=== PATIENT | female | born 2000 | race Caucasian/White ===

== ENCOUNTER 2025-02-11 15:17 | Outpatient (AMB) | payer MEDICAID, SELFPAY ==
[2025-02-11 15:38] VITALS: BP 99/60; PULSE 86; RESP 16; TEMP 35.9; O2SAT 95; BMI 29.9
--- NOTE | 2025-02-11 15:38 | OBCLNT_ITS ---
Vital Signs 02/11/25 15:38 Height 1.63 m Height Method Stated Weight 79.095 kg Weight Measurement Method Baby Scale BMI 29.9 BP 99/60 Blood Pressure Source Automatic Cuff Blood Pressure Location Left Upper Arm Position Sitting Respiration 16 Pulse 86 Pulse Source Monitor Temp 96.7 F L Temp Source Oral Pulse Oximetry (%) 95 Oxygen Delivery Method Room Air Allergies/Home Meds Allergies & Medications Allergies No Known Allergies Allergy (Verified 02/11/25 15:39) Medication Reconciliation No Known Home Medications 02/11/25 [History Confirmed 02/11/25] Intake Visit Data Collection New Patient or Established: New Patient (never been to [facility]) Reason for Visit:: INITIAL CARE Seen by Clinical Staff ONLY (RN/MA): No Record Librarian Required: No Do You Feel Safe at Home: Yes Authorities Contacted: N/A PCP or OBGYN visit in last 3 months: Yes Hx Now: Yes Are you currently on any form of Control: No Last menstrual period: 07/21/24 Pain Present Currently: No Pain Scale Used: Waterman-Lopez/Numerical Pain scale:: 0 Smoking Status Smoking Status: Former smoker Questionnaires Covid-19 Vaccine Questionnaire Has patient been vacinated for Covid-19 Have you been vacinated for Covid-19: No PHQ-9 PHQ-2 Over the last 2 weeks, how often have you been bothered by any of the following problems? 1. Little interest or pleasure in doing things: not at all 2. Feeling down, depressed, or hopeless: not at all Total score: 0 PHQ-9 3. Trouble falling or staying asleep, or sleeping too much: Not at all 4. Feeling tired or having little energy: Not at all 5. Poor appetite or overeating: Not at all 6. Feeling bad about yourself - or that you are a failure or have let yourself or your family down: Not at all 7. Trouble concentrating on things, such as reading the newspaper or watching television: Not at all 8. Moving or speaking so slowly that other people could have noticed? - Or the opposite - being so fidgety or restless that you have been moving around a lot more than usual: not at all 9. Thoughts that you would be better off or of hurting yourself in some way: Not at all Total score: 0 Source: Developed by Drs. Francisco Rivas, Gisselle Alegre, Bert Hancock and colleagues, with an educational jose from [employer]. Depression screen completed yes Social History Tobacco History Smoking Status: Former smoker Domestic Abuse History Do You Feel Safe at Home: Yes Past Medical History Past Medical History Have you ever been diagnosed with any of the following: History of Present Illness HPI Narrative 24-year-old 4 para 1 comes to [facility] for first visit. Patient has been [facility] here in [place] for care. Her last. July 21, 2024. This gives due date April 25, 2025. Patient was transferred for care from [facility] early on in the . Patient has a history of previous x 1. was for distress. Patient first C- section was at [facility]. Patient plans to deliver this baby at [facility] as well. Patient would like [place]. Patient understands the risks and benefits of trial of labor after previous . Reports activity. Denies any complaints of labor. Denies leaking or bleeding. Patient complains of sciatic pain down both hips. And she also complains of problems with her allergies and she has patient been taking Zyrtec for allergic symptoms and that helps. Previous history of marijuana use. Patient signed medical release of records and chart is pending. No labs available at this time OB Initial Visit OB Flowsheet OB Flowsheet Initial Weight: Not Recorded Date -?-?-?-?-?-?-?-?-?-?-?-?- EGA Weight Edema CTX Effacement BP Fundal ht Pres Dilation Effacement Station Visit Note Alb Glu FHR Mov 02/11/25 -?-?-?-?-?-?-?-?-?-?-?-?- 29w 2d 79.095 kg absent absent 29 24-year-old 2 para 1 at 29 weeks 6 days. Previous history of x 1 at [facility]. C- section was for decreased heart rate of the baby. Patient would like to have a . Patient understands that this currently at this time VBACs are not being done at [facility]. So patient plans to go to [facility] in labor. Patient lives in [place] as well. I discussed labor with the patient. Discussed comfort measures for both allergies and sciatica. And then I discussed with patient again the policy for having a at [facility]. I advised the patient to try and schedule an OB appointment at one of the [facility] clinics. And I did remind patient that I would schedule her with an OB here at this clinic so that she can discuss and be made more aware of options for . Declined T dap today. Discussed labor prevention and symptoms. Return in 2 weeks OB check 24-year-old 4 para 1 at 29 weeks 6 days. Previous history of x 1 at [facility]. was for decreased heart rate of the baby. Patient would like to have a . Patient understands that this currently at this time VBACs are not being done at [facility]. So patient plans to go to [facility] in labor. Patient lives in [place] as well. I discussed labor with the patient. Discussed comfort measures for both allergies and sciatica. And then I discussed with patient again the policy for having a at [facility]. I advised the patient to try and schedule an OB appointment at one of the [facility] clinics. And I did remind patient that I would schedule her with an OB here at this clinic so that she can discuss and be made more aware of options for . Declined T dap today. Discussed labor prevention and symptoms. Return in 2 weeks OB check 151 active Menstrual History Menstrual reliability: definite Flow: normal Menstrual regularity: regular Monthly: Yes Age at menarche: 12 On control pills at conception: No Date of positive home test: 08/04/24 Associated symptoms (LMP): Denies amenorrhea, nausea, vomiting, fatigue, breast tenderness, urinary frequency, irritability, bloating or other OB History : 4 Para: 1 Hx Total # of Abortions (Spontaneous & Elective): 2 # of Living Children: 1 Delivery History 1st : Child's name: INDRA sex: male Gestational age at delivery (weeks): 39 Delivery type: Delivery complications: BABY HEART RATE History of depression before or after : No Infection History & Risk Evaluation History of STDs: chlamydia (3 YEARS AGO. negative this ) Genetic Screening & History Genetic Screening/Teratology Counseling - Includes patient, baby's father, or anyone in either family with: 1. Patient's age 35 years or older as of estimated date of delivery: No 2. Thalassemia (Thai, Maltese, Mediterranean, or Background); MCV less than 80: No 3. Neural Tube Defect (Meningomyelocele, Spina Bifida, or Anencephaly): No 4. Congenital Heart Defect: No 5. Down Syndrome: No 6. Josesito-Sachs (Ashkenazi Mormonism, Cajun, Greek [place]): No 7. Nilton Disease (Ashkenazi Mormonism): No 8. Familial Dysautonomia (Ashkenazi Mormonism): No 9. Sickle Cell Disease or Trait (): No 10. Hemophilia or other blood disorders: No 11. Muscular Dystrophy: No 12. Cystic Fibrosis: No 13. Nathan's Chorea: No 14. Mental Retardation/Autism: No 15. Other inherited genetic or chromosomal disorder: No 16. Maternal Metabolic Disorder (EG,TYPE 1 Diabetes, PKU): No 17. Patient or baby's father had a child with defects not listed above: No 18. Recurrent loss or a stillbirth: No 19. Medications (including supplements, vitamins, herbs or otc drugs)/illicit/recreational drugs/alcohol since last menstrual period: No 20. Any other: No Infection History 1. Live with someone with TB or exposed to TB: No 2. Rash or viral illness since last menstrual period: No 3. Hepatitis B,C: No 4. History of STD: chlamydia (3 YEARS AGO) Other (see comments) Source: [employer] Review of Systems Review of Systems Systems Reviewed: All systems reviewed, normal except as documented Constitutional Constitutional: Denies fatigue Gastrointestinal Gastrointestinal: Denies bloating, Denies nausea and Denies vomiting Genitourinary Genitourinary: Denies amenorrhea and Denies urinary frequency Psychiatric Psychiatric: Denies irritability Endocrine Endocrine: Denies fatigue Exam General Limitations: no limitations General Appearance: alert, in no apparent distress, comfortable, cooperative, healthy appearing, well developed and well groomed Resp Respiratory exam: Present normal lung sounds bilaterally Card Cardiovascular exam: Present regular rate, normal rhythm and normal heart sounds Abdominal Abdominal exam: Present soft (fh: 29, fht: 151) and normal bowel sounds Psych Psychiatric exam: Present normal affect and normal mood Assessment & Plan Diagnosis / Problem List (1) Encounter for supervision of normal in multigravida in third trimester: Status: Acute (2) Encounter for maternal care for low transverse scar from previous delivery: Status: Acute Plan Medical release for chart and records. Continue vitamins and iron. Discussed dates with patient. I discussed with patient risks and benefits. Discussed policy with patient in regards to [facility]. I advised patient to try and schedule apportionment appointment at [facility]. [place] is closer to her house and also patient wants to deliver there [facility]. Patient declined Tdap today return in 2 weeks Additional Plan Follow Up: 2 Weeks (rtc 2 week obc) Office Procedures OB Clinic LOC & Office Proc's Nursing/Assessment Patient Status: Initial/New Patient OB Clinic Nursing Assessment: Medication Reconciliation, Update PMH in EMR and Vital Signs OB Clinic Coordination of Care: Complex Care and Chronic Disease 1-5, Consent,records obtained, informed consent, Education Simp Pt/Fam, Lab and Imaging orders and Staff clarify orders Special Needs: Heart tones New Patient Charge New Patient Point Assignment: [id number] New Patient Point Charge: COMMERCIAL ACCOUNT MANAGER Level 4 ([id number])
== END 2025-02-11 16:11 | disposition home or self-care (01) ==
LOC: HODSOBC 15:17
PROVIDERS: Supervising Provider Advanced Practice Midwife; Visit Provider Advanced Practice Midwife
DX: O09.893 Supervision of other high risk pregnancies, third trimester (principal); Z3A.29 29 weeks gestation of pregnancy; O34.211 Maternal care for low transverse scar from previous cesarean delivery; O99.891 Other specified diseases and conditions complicating pregnancy; M54.32 Sciatica, left side; M54.31 Sciatica, right side; Z87.891 Personal history of nicotine dependence; Z28.21 Immunization not carried out because of patient refusal
CPT/HCPCS: 99204; G0463